=== PATIENT | male | born 1980 | race Caucasian/White ===

== ENCOUNTER 2017-07-19 23:17 | Emergency (ER) | payer BC ==
--- NOTE | 2017-07-19 23:39 | Emergency Department Record ---
History of Present Illness - General Chief complaint: Flank Pain Stated complaint: LEFT FLANK PAIN Time Seen by Provider: 07/19/17 23:35 Source: Patient Mode of Arrival: Ambulatory Limitations: No limitations - History of Present Illness Initial comments: The patient is here due to a one day hx of L flank pain. It is sharp and stabbing and has been getting progressively worse during the day today. He does have some nausea but no vomiting. The patient states he felt like he could not get comfortable due to the pain and has been moving around a lot per his mother. The patient had a similar problem a few weeks ago but it was not as bad. He denies any dysuria, hematuria, fever, chills, CP, SOB, or diarrhea. He has no hx of kidney stones. MD Complaint: Other Onset/Timin -: Days(s) Location: Left flank Severity scale (1-10): 10 Quality: Sharp Consistency: Constant, Getting worse Improves with: None Worsens with: None Reports: Nausea/vomiting - Related Data Home Medications Medication Instructions Recorded Confirmed Last Taken Gabapentin [Neurontin] 600 mg PO TID 07/19/17 07/19/17 Unknown Lisdexamfetamine Dimesylate 70 mg PO DAILY 07/19/17 07/19/17 Unknown [Vyvanse] Previous Rx's Medication Instructions Recorded Naproxen [Naprosyn] 500 mg PO BID #14 tablet. 07/20/17 Allergies Allergy/AdvReac Type Severity Reaction Status Date / Time No Known Drug Allergies Allergy Verified 07/19/17 23:32 Travel Screening - Travel/Exposure Within Last 30 Days Have you traveled within the last 30 days?: No Review of Systems Constitutional: Denies: Chills, Fever Eyes: Denies: Eye discharge ENT: Denies: Congestion Respiratory: Denies: Cough, Dyspnea Cardiovascular: Denies: Chest pain Past Medical History - SOCIAL HISTORY Smoking Status: Never smoker Alcohol Use: Rare Drug Use: None - RESPIRATORY Hx Respiratory Disorders: No - CARDIOVASCULAR Hx Cardio Disorders: No - NEURO Hx Neuro Disorders: No - GI Hx GI Disorders: No - Hx Genitourinary Disorders: No - ENDOCRINE Hx Endocrine Disorders: No - MUSCULOSKELETAL Hx Musculoskeletal Disorders: No - PSYCH Hx Psych Problems: Yes Comment:: ADHD - HEMATOLOGY/ONCOLOGY Hx Hematology/Oncology Disorders: No Family Medical History Any Significant Family History?: Yes Hx Diabetes: Father Hx Heart Disease: Father Physical Exam - General General Appearance: Alert, Oriented x3, Cooperative, No acute distress - Head Head exam: Atraumatic - Eye Eye exam: Normal appearance, PERRL Pupils: Normal accommodation - Neck Neck exam: Normal inspection, Full ROM. negative: Tenderness - Respiratory Respiratory exam: Normal lung sounds bilaterally. negative: Respiratory distress - Cardiovascular Cardiovascular Exam: Regular rate, Normal rhythm, Normal heart sounds - GI/Abdominal GI/Abdominal exam: Soft, Normal bowel sounds. negative: Distended, Rebound, Rigid, Tenderness - Extremities Extremities exam: Normal inspection, Full ROM, Normal capillary refill. negative: Tenderness - Neurological Neurological exam: Alert, Normal gait. negative: Abnormal gait, Motor sensory deficit - Skin Skin exam: negative: Rash Course Vital Signs 07/19/17 23:34 Temperature 97.9 F Pulse Rate [ 101 H Pulse Ox Probe] Respiratory 22 Rate Blood Pressure 144/100 [Left Arm] Pulse Ox 97 - Reevaluation(s) Reevaluation #1: The patient is doing very well at this time. His pain has resolved and he is resting comfortably. 07/20/17 01:00 Reevaluation #2: The patient is doing very well at this time. He denies any pain or discomfort at this time. I did explain to him that his labs and CT do not demonstrate any abnormality. He is to F/U with his PCP for recheck and to return to the ER if worse. 07/20/17 01:45 Medical Decision Making - Data Complexity MDM Data: Labs Ordered and/or Reviewed, X-Ray Ordered and/or Reviewed, EKG Ordered and/or Reviewed - Lab Data Result diagrams: 07/19/17 23:45 07/19/17 23:45 - EKG Data -: EKG Interpreted by Me EKG: No Acute Changes, Normal EKG - Radiology Data Radiology results: Report reviewed (Abd/Pelvis CT: Neg.) Disposition Disposition: Discharge Clinical Impression: Flank pain Disposition: Home, Self-Care Condition: (1) Good Instructions: Flank Pain (ED) Additional Instructions: Please take the Naprosyn for pain. Please see your PCP for recheck in 2-3 days if having any pain. Return to the ER for any increased pain, fever, nausea, vomiting, or diarrhea. Prescriptions: Naproxen [Naprosyn] 500 mg PO BID #14 tablet.dr Forms: Patient Portal Access Time of Disposition: 01:47 Quality - Quality Measures Quality Measures: N/A - Blood Pressure Screening View Details: Yes Does Patient Have Any of the Following: No Blood Pressure Classification: Normal BP Reading Systolic Measurement: 111 Diastolic Measurement: 79 Screening for High Blood Pressure: < Pre-Hypertensive BP, F/U Documented > [ [id number]] Pre-Hypertensive Follow-up Interventions: Referral to alternative/primary care provider.
[2017-07-19] MEDS ORDERED: 0.9 % SODIUM CHLORIDE 1,000 ML BAG IV ONE (23:43)
[2017-07-19] MEDS ORDERED: ONDANSETRON HCL IV 4 MG/2 ML VIAL IV ONE (23:43)
[2017-07-19] MEDS ORDERED: KETOROLAC 30 MG/ML VIAL IVP ONE (23:47)
[2017-07-19 23:53] LABS: BASO % 0.3 % (0-6); EOS % 2.1 % (0-6); GRAN % 66.9 % (47-80); HEMATOCRIT 45.9 % (42.0-52.0); HEMOGLOBIN 15.8 gm/dl (14.0-18.0); LYMPH % 20.2 % (16-45); MEAN CELL VOLUME 86.8 fl (81-97); MEAN CORPUSCULAR HEMOGLOBIN 29.9 pg (27-33); MEAN CORPUSCULAR HGB CONC 34.4 g/dl (32-36); MEAN PLATELET VOLUME 9.8 fl (7.4-10.4); MONO % 10.5 % (0-9); PLATELET COUNT 217 K/uL (130-400); RED BLOOD COUNT 5.29 M/uL (4.40-5.70); URINE APPEARANCE CLEAR; URINE BILIRUBIN NEGATIVE (NEGATIVE); URINE BLOOD NEGATIVE (NEGATIVE); URINE COLOR YELLOW; URINE GLUCOSE (UA) NEGATIVE (NEGATIVE); URINE KETONE NEGATIVE (NEGATIVE); URINE LEUKOCYTE ESTERASE NEGATIVE (NEGATIVE); URINE NITRITE NEGATIVE (NEGATIVE); URINE PROTEIN NEGATIVE (NEGATIVE); URINE UROBILINOGEN 0.2 E.U./dL (0.20 - 1.00); WHITE BLOOD COUNT W/O DIFF 13.1 K/uL (4.2-12.2)
[2017-07-20 00:04] LABS: ALBUMIN 4.4 gm/dL (3.5-5.0); ALKALINE PHOSPHATASE 99 U/L (38-126); ALT/SGPT 54 U/L (21-72); ANION GAP 12.8 (7-16); AST/SGOT 28 U/L (17-59); BILIRUBIN,TOTAL 0.73 mg/dL (0.2-1.3); BLOOD UREA NITROGEN 13 mg/dL (9-20); CARBON DIOXIDE 22.2 mmol/L (22-30); EST GLOMERULAR FILTRATION RATE > 60 ml/min; GLUCOSE,RANDOM 172 mg/dL (70-110); LIPASE 324 U/L (23-300)
[2017-07-20 01:15] LABS: AMPHETAMINE SCREEN URINE DETECTED; BARBITURATE SCREEN URINE NOT DETECTED; BENZODIAZEPINE SCREEN URINE NOT DETECTED; COCAINE SCREEN URINE NOT DETECTED; METHADONE SCREEN URINE NOT DETECTED; METHAMPHETAMINE SCREEN NOT DETECTED; OPIATE SCREEN URINE NOT DETECTED; OXYCODONE SCREEN URINE NOT DETECTED; PHENCYCLIDINE SCREEN URINE NOT DETECTED; PROPOXYPHENE SCREEN URINE NOT DETECTED; THC SCREEN URINE DETECTED; TRICYCLIC ANTIDEPRESSANT SCRN NOT DETECTED
[2017-07-20 01:24] LABS: CREATINE PHOSPHOKINASE 152 U/L (55-170)
[2017-07-20 01:36] LABS: CKMB 0.7 ug/L (0-6)
[2017-07-20 01:37] LABS: TROPONIN I < 0.012 ng/mL (0.00-0.034)
--- NOTE | 2017-07-21 16:04 | CT SCAN REPORT ---
DATE: 07/20/2017 at 12:31 a.m. EXAM: CT SCAN ABDOMEN AND PELVIS WITHOUT CONTRAST. HISTORY: Left flank pain beginning today. TECHNIQUE: Standard CT imaging of the abdomen and pelvis was performed in the axial plane without contrast. Additional coronal and sagittal reformatted images were also performed. COMPARISON: None. FINDINGS: There is minor atelectasis at both lung bases. The lung bases are otherwise clear. The liver, gallbladder, biliary tree, pancreas, spleen, and adrenal glands are normal. A 1.0 mm nonobstructing stone is present within the left kidney. The kidneys and ureters are otherwise normal. There is no obstructing calculus or hydronephrosis. The aorta is normal in caliber. There is no lymphadenopathy. The stomach and epigastrium are normal. The bowel and mesentery, including the appendix, are normal. There are no focal inflammatory changes. There is no pneumoperitoneum or ascites. The urinary bladder and prostate gland are normal. There are no acute osseus abnormalities. IMPRESSION: 1. NO ACUTE INTRA-ABDOMINAL PATHOLOGY. 2. A 1.0 MM NONOBSTRUCTING STONE WITHIN THE LEFT KIDNEY. JOB NUMBER: [id number] [facility]
== END 2017-07-20 01:55 | disposition home or self-care (01) ==
LOC: ER 23:17
DX: R10.31 Right lower quadrant pain (principal); R11.0 Nausea
CPT/HCPCS: 74176; 80048; 80076; 80305; 81003; 82550; 82553; 83690; 84484; 85025; 93005; 93010; 96374; 96375; 99284; J1885; J2405; J7030